=== PATIENT | female | born 1950 | race Caucasian/White ===

== ENCOUNTER 2016-03-18 12:59 | Emergency (ER) | payer OTHER ==
[~2016-03-18] VITALS: Ht 157.5 cm; Wt 59.2 kg
[~2016-03-18 12:59] MED LIST: ADVI200C9 PO; CYCL5TAB PO; GLUCTAB OR; LEVADOPA PO; PERC5TAB12 PO
[2016-03-18 13:04] VITALS: BP 114/67; PULSE 72; RESP 16; TEMP 98.7; O2SAT 100
[2016-03-18] MEDS ORDERED: METF1000 PO (13:27)
--- NOTE | 2016-03-18 14:01 | PD ---
HPI . Constipation Chief Complaint: GI Complaint Time Seen by Provider: 13:17 Travel History International Travel<30 days: No Contact w/Intl Traveler<30days: No Traveled to known affect area: No History of Present Illness HPI Patient presents complaining with constipation. This been going on for a couple weeks. She states her abdomen is very swollen. She has a poor appetite and sometimes feels nauseous. No vomiting. No fever. PFSH Past Medical History Asthma: Yes Anxiety: Yes Heart Rhythm Problems: No Cancer: No Cardiac Catheterization: No Cardiovascular Problems: No High Cholesterol: Yes Congestive Heart Failure: No Diabetes: Yes Patient Takes Glucophage: Yes Diverticulitis: Yes Endocrine: Yes Gastrointestinal Disorders: Yes GERD: Yes Genitourinary: No Hypertension: No Immune Disorder: No Musculoskeletal: Yes (RESTLESS LEG SYNDROME) Neurologic: Yes (RESTLESS LEG SYNDROME) Psychiatric: No Reproductive: No Respiratory: Yes Myocardial Infarction: No Tetanus Vaccination: < 5 Years ?: Not LMP: MAYNOR Tubal Ligation: Yes Past Surgical History Abdominal Surgery: Yes (choly, appy lap exploratory) Appendectomy: Yes Cholecystectomy: Yes Coronary Artery Bypass Graft: No Other Surgery: Yes Social History Alcohol Use: No Tobacco Use: Yes (05/10 PPD) Substance Use: No Allergies-Medications (Allergen,Severity, Reaction): Coded Allergies: Codeine (Verified Adverse Reaction, Severe, Nausea/Vomiting, 03/18/16) Reported Meds & Prescriptions Reported Meds & Active Scripts Active Reported Metformin (Metformin HCl) 1,000 Mg Tab 1,000 Mg PO BIDPC With meals [Levadopa] 1 Tab PO HS Review of Systems Except as stated in HPI: all other systems reviewed are Neg General / Constitutional: No: Fever, Chills Gastrointestinal: Positive: Nausea, Abdominal Pain, Constipation, Changes in Bowel Habits, Loss of Appetite, Other (bloating), No: Vomiting, Diarrhea Genitourinary: Positive: Frequency, No: Urgency, Dysuria Physical Exam Narrative GENERAL: Healthy-appearing 66-year-old woman in no acute distress SKIN: Warm and dry. HEAD: Atraumatic. Normocephalic. EYES: Pupils equal and round. ENT: No nasal bleeding or discharge. Mucous membranes pink and moist. NECK: Trachea midline. CARDIOVASCULAR: Regular rate and rhythm. Heart sounds are normal. RESPIRATORY: No accessory muscle use. Lungs are clear with good air movement throughout. GASTROINTESTINAL: Abdomen soft, non-tender. Abdomen is bloated and diffusely tender. Bowel sounds are diminished. MUSCULOSKELETAL: No obvious deformities. No edema. NEUROLOGICAL: Awake and alert. No obvious cranial nerve deficits. Motor grossly within normal limits. Normal speech. PSYCHIATRIC: Appropriate mood and affect; insight and judgment normal. Data Data Last Documented VS Vital Signs Date Time Temp Pulse Resp B/P Pulse Ox O2 Delivery O2 Flow Rate FiO2 03/18/16 14:58 97 Room Air 03/18/16 13:04 98.7 72 16 114/67 Orders Chest, Single Ap (03/18/16 13:18) Abdomen, Flat & Upright (03/18/16 13:18) Complete Blood Count With Diff (03/18/16 14:17) Comprehensive Metabolic Panel (03/18/16 14:17) Lipase (03/18/16 14:17) Urinalysis - C+S If Indicated (03/18/16 14:17) Ct Abd/Pel W Iv Contrast(Rout) (03/18/16 14:17) Iv Access Insert/Monitor (03/18/16 14:17) Ecg Monitoring (03/18/16 14:17) Oximetry (03/18/16 14:17) Sodium Chloride 0.9% Flush (Ns Flush) (03/18/16 14:30) Urine Culture (03/18/16 14:40) Iohexol 350 Inj (Omnipaque 350 Inj) (03/18/16 15:48) Labs Laboratory Tests Test 03/18/16 14:40 White Blood Count 6.6 TH/MM3 Red Blood Count 4.59 MIL/MM3 Hemoglobin 14.2 GM/DL Hematocrit 43.0 % Mean Corpuscular Volume 93.8 FL Mean Corpuscular Hemoglobin 31.0 PG Mean Corpuscular Hemoglobin 33.0 % Concent Red Cell Distribution Width 14.0 % Platelet Count 282 TH/MM3 Mean Platelet Volume 8.3 FL Neutrophils (%) (Auto) 56.8 % Lymphocytes (%) (Auto) 30.6 % Monocytes (%) (Auto) 8.8 % Eosinophils (%) (Auto) 3.3 % Basophils (%) (Auto) 0.5 % Neutrophils # (Auto) 3.8 TH/MM3 Lymphocytes # (Auto) 2.0 TH/MM3 Monocytes # (Auto) 0.6 TH/MM3 Eosinophils # (Auto) 0.2 TH/MM3 Basophils # (Auto) 0.0 TH/MM3 CBC Comment DIFF FINAL Differential Comment Urine Collection Type CLEAN CATCH Urine Color YELLOW Urine Turbidity CLEAR Urine pH 6.5 Urine Specific [place] 1.025 Urine Protein NEG mg/dL Urine Glucose (UA) NEG mg/dL Urine Ketones NEG mg/dL Urine Occult Blood NEG Urine Nitrite NEG Urine Bilirubin NEG Urine Leukocyte Esterase NEG Urine Squamous Epithelial 6-8 /hpf Cells Urine Amorphous Sediment FEW Urine Bacteria MOD /hpf Microscopic Urinalysis Comment CULTURE INDICATED Urine Collection Time 1440 Sodium Level 142 MEQ/L Potassium Level 3.7 MEQ/L Chloride Level 106 MEQ/L Carbon Dioxide Level 29.2 MEQ/L Anion Gap 7 MEQ/L Blood Urea Nitrogen 19 MG/DL Creatinine 0.81 MG/DL Estimat Glomerular Filtration 71 ML/MIN Rate Random Glucose 84 MG/DL Calcium Level 9.0 MG/DL Total Bilirubin 0.5 MG/DL Aspartate Amino Transf 13 U/L (AST/SGOT) Alanine Aminotransferase 23 U/L (ALT/SGPT) Alkaline Phosphatase 50 U/L Total Protein 7.2 GM/DL Albumin 3.7 GM/DL Lipase 142 U/L [facility] Medical Decision Making Medical Screen Exam Complete: Yes Emergency Medical Condition: Yes Differential Diagnosis Differential diagnosis of abdominal pain includes but is not limited to gastritis, pancreatitis, hepatitis, gastroenteritis, gallbladder disease, constipation, urinary retention, UTI, peptic ulcer disease, diverticulitis or appendicitis Narrative Course Patient presents for evaluation and treatment of apparent constipation. She states that she has not been having good bowel movements for the last several weeks. She is now very bloated. 2:18 PM Plain films really do not show a lot of stool. Therefore, I will proceed with a full abdominal pain workup. 3:26 PM CBC is normal. Chemistries are unremarkable with the exception of BUN/cr of 19/0.81. CT and UA are pending. 3:32 PM Voided urine shows bacteria but there is no leukocyte esterase or nitrite. There is no mention of white blood cells. Therefore, I do not think that she has a UTI. Diagnosis Primary Impression: Abdominal pain Qualified Code: R10.84 - Generalized abdominal pain Disposition: 01 DISCHARGE HOME Condition: Stable Barby Murphy MD Mar 18, 2016 14:01
--- NOTE | 2016-03-18 14:05 | RADHPO ---
EXAM DATE/TIME: 03/18/2016 13:45 [facility] COMPARISON: CHEST SINGLE AP, July 18, 2013, 15:56. INDICATIONS : Shortness of breath. MEDICAL HISTORY : Asthma. Smoker. SURGICAL HISTORY : None. ENCOUNTER: Initial ACUITY: 1 week PAIN SCORE: 0/10 LOCATION: Bilateral chest FINDINGS: A single view of the chest demonstrates the lungs to be symmetrically aerated without evidence of mas s, infiltrate or effusion. The cardiomediastinal contours are unremarkable. Osseous structures are intact. CONCLUSION: No acute disease. Viecnte Franks MD on March 18, 2016 at 14:03 Board Certified Radiologist. This report was verified electronically.
--- NOTE | 2016-03-18 14:09 | RADHPO ---
EXAM DATE/TIME: 03/18/2016 13:52 [facility] COMPARISON: CHEST SINGLE AP, March 18, 2016, 13:45. INDICATIONS : Abdominal pain, constipation and distention. MEDICAL HISTORY : None. SURGICAL HISTORY : Cholecystectomy. Appendectomy. Tubal ligation. ENCOUNTER: Initial ACUITY: 1 month PAIN SCORE: 6/10 LOCATION: Abdomen. FINDINGS: Supine and upright views of the abdomen were performed. The abdominal bowel gas pattern is normal. No air fluid levels are seen. There is a relative paucity of bowel gas identified within the pelvis. No abnormal masses, calcifications, or organomegaly is seen. The visualized lower lungs are clear. No evidence of free intraperitoneal gas. The osseous structures are unremarkable. CONCLUSION: No evidence of bowel obstruction or free air. The paucity of bowel gas identified within the pelvis m ay reflect decompression versus fluid filled bowel.. Pastora Garcia MD on March 18, 2016 at 14:07 Board Certified Radiologist. This report was verified electronically.
[2016-03-18] MEDS ORDERED: SODIUM CHLORIDE 0.9% FLUSH 5 ML FLUSH IVF PRN (14:30)
[2016-03-18 14:46] LABS: BLOOD, URINE NEG (NEG); GLUCOSE,URINE NEG (NEG); KETONE, URINE NEG (NEG); NITRITE,URINE NEG (NEG); PH, URINE 6.5 (5.0-8.5)
[2016-03-18 14:56] LABS: CHLORIDE 106 MEQ/L (98-107); POTASSIUM 3.7 MEQ/L (3.5-5.1); SODIUM (NA) 142 MEQ/L (136-145)
[2016-03-18 14:58] VITALS: O2SAT 97
[2016-03-18 15:00] LABS: ANION GAP 7 MEQ/L (5-15); BICARBONATE 29.2 MEQ/L (21.0-32.0); BLOOD UREA NITROGEN 19 MG/DL (7-18)
[2016-03-18 15:03] LABS: ALT (GPT) 23 U/L (10-53); AST (GOT) 13 U/L (15-37); GLOMERULAR FILTRATION RATE 71 ML/MIN (>89)
[2016-03-18 15:05] LABS: TOTAL BILIRUBIN ADULT 0.5 MG/DL (0.2-1.0)
[2016-03-18 15:06] LABS: ALKALINE PHOSPHATASE 50 U/L (45-117)
[2016-03-18 15:09] LABS: AUTOMATED NEUTROPHIL # 3.8 TH/MM3 (1.8-7.7); BASOPHIL % 0.5 % (0.0-2.0); EOSINOPHIL # 0.2 TH/MM3 (0-0.4); EOSINOPHIL % 3.3 % (0.0-4.0); HEMO FLAGS DIFF FINAL; LYMPH % 30.6 % (9.0-44.0); MEAN CELL VOLUME 93.8 FL (80.0-100.0); MONO % 8.8 % (0.0-8.0); NEUT % 56.8 % (16.0-70.0); PLATELET COUNT 282 TH/MM3 (150-450); RED BLOOD COUNT 4.59 MIL/MM3 (4.00-5.30); WHITE BLOOD COUNT 6.6 TH/MM3 (4.0-11.0)
[2016-03-18 15:29] LABS: METHOD OF COLLECTION CLEAN CATCH; URINE COLOR YELLOW (YELLW/STRAW)
[2016-03-18 15:30] LABS: BACTERIA, URINE MOD /hpf; COMMENT (UR) CULTURE INDICATED; COMMENT2 (UR) MUCOUS PRESENT; CULTURE IF INDICATED CULTURE INDICATED
[2016-03-18] MEDS ORDERED: IOHEXOL 350 MG/ML 10 ML VIAL (for RAD DIAG) IV ONE (15:48)
--- NOTE | 2016-03-18 16:24 | RADHPO ---
EXAM DATE/TIME: 03/18/2016 15:29 [facility] COMPARISON: CT ABDOMEN & PELVIS W CONTRAST, December 21, 2011, 5:24. INDICATIONS: Constipation. Distention. Weight gain. Pain. IV CONTRAST: 100 cc Omnipaque 350 (iohexol) IV ORAL CONTRAST: No oral contrast ingested. RADIATION DOSE: 9.60 CTDIvol (mGy) MEDICAL HISTORY: Diverticulitis. Gastroesophageal reflux disease. Diabetes. SURGICAL HISTORY: Cholecystectomy. Appendectomy. ENCOUNTER: Initial ACUITY: 1 week PAIN SCALE: 9/10 LOCATION: Abdomen/pelvis TECHNIQUE: Volumetric scanning of the abdomen and pelvis was performed. Using automated exposure control and ad justment of the mA and/or kV according to patient size, radiation dose was kept as low as reasonably achievable to obtain optimal diagnostic quality images. FINDINGS: There is a massive complex cystic mass measuring 24.5 x 24.2 x 13.7 cm. This likely represents ovari an neoplasm with malignancy more likely than benign ovarian neoplasm. Gynecologic evaluation is recomme nded. The liver is unremarkable without focal mass or biliary ductal dilatation. The patient is status pos t cholecystectomy. The spleen is normal. The pancreas is also normal. The adrenal glands are normal bilaterally. The kidneys enhance briskly and demonstrate no evidence of focal mass or hydronephrosis. The abdomin al aorta is calcified but it is not aneurysmally dilated. Uncomplicated colonic diverticulosis is noted. The inferior vena cava is unremarkable. There is no paraaortic, retroperitoneal or mesenteric lymphadenopathy. No asc ites is noted. There is a hiatal hernia. The urinary bladder and uterus are unremarkable. CONCLUSION: 1. Massive complex cystic mass filling the pelvis and the majority of the mid and lower abdomen shanae uring 24.5 x 24.2 x 13.7 cm. This is highly suspicious for ovarian malignancy until proven otherwise . Gynecologic evaluation is recommended. 2. Hiatal hernia. Vicente Franks MD on March 18, 2016 at 15:56 Board Certified Radiologist. This report was verified electronically.
--- NOTE | 2016-03-18 17:03 | PD ---
Physical Exam Time Seen by Provider: 16:30 Narrative This patient was signed out to me by Dr. Murphy. Please see her note for further details. In short, patient presents with a several month history of constipation in urinary frequency. States over the past month that is especially worsened and she has gained 6 pounds. Denies family history of ovarian or breast cancer but reports history of colon cancer. Data Data Last Documented VS Vital Signs Date Time Temp Pulse Resp B/P Pulse Ox O2 Delivery O2 Flow Rate FiO2 03/18/16 14:58 97 Room Air 03/18/16 13:04 98.7 72 16 114/67 Orders Chest, Single Ap (03/18/16 13:18) Abdomen, Flat & Upright (03/18/16 13:18) Complete Blood Count With Diff (03/18/16 14:17) Comprehensive Metabolic Panel (03/18/16 14:17) Lipase (03/18/16 14:17) Urinalysis - C+S If Indicated (03/18/16 14:17) Ct Abd/Pel W Iv Contrast(Rout) (03/18/16 14:17) Iv Access Insert/Monitor (03/18/16 14:17) Ecg Monitoring (03/18/16 14:17) Oximetry (03/18/16 14:17) Sodium Chloride 0.9% Flush (Ns Flush) (03/18/16 14:30) Urine Culture (03/18/16 14:40) Iohexol 350 Inj (Omnipaque 350 Inj) (03/18/16 15:48) Mandatory Outpatient Referral (03/18/16 16:54) Labs Laboratory Tests Test 03/18/16 14:40 White Blood Count 6.6 TH/MM3 Red Blood Count 4.59 MIL/MM3 Hemoglobin 14.2 GM/DL Hematocrit 43.0 % Mean Corpuscular Volume 93.8 FL Mean Corpuscular Hemoglobin 31.0 PG Mean Corpuscular Hemoglobin 33.0 % Concent Red Cell Distribution Width 14.0 % Platelet Count 282 TH/MM3 Mean Platelet Volume 8.3 FL Neutrophils (%) (Auto) 56.8 % Lymphocytes (%) (Auto) 30.6 % Monocytes (%) (Auto) 8.8 % Eosinophils (%) (Auto) 3.3 % Basophils (%) (Auto) 0.5 % Neutrophils # (Auto) 3.8 TH/MM3 Lymphocytes # (Auto) 2.0 TH/MM3 Monocytes # (Auto) 0.6 TH/MM3 Eosinophils # (Auto) 0.2 TH/MM3 Basophils # (Auto) 0.0 TH/MM3 CBC Comment DIFF FINAL Differential Comment Urine Collection Type CLEAN CATCH Urine Color YELLOW Urine Turbidity CLEAR Urine pH 6.5 Urine Specific [place] 1.025 Urine Protein NEG mg/dL Urine Glucose (UA) NEG mg/dL Urine Ketones NEG mg/dL Urine Occult Blood NEG Urine Nitrite NEG Urine Bilirubin NEG Urine Leukocyte Esterase NEG Urine Squamous Epithelial 6-8 /hpf Cells Urine Amorphous Sediment FEW Urine Bacteria MOD /hpf Microscopic Urinalysis Comment CULTURE INDICATED Urine Collection Time 1440 Sodium Level 142 MEQ/L Potassium Level 3.7 MEQ/L Chloride Level 106 MEQ/L Carbon Dioxide Level 29.2 MEQ/L Anion Gap 7 MEQ/L Blood Urea Nitrogen 19 MG/DL Creatinine 0.81 MG/DL Estimat Glomerular Filtration 71 ML/MIN Rate Random Glucose 84 MG/DL Calcium Level 9.0 MG/DL Total Bilirubin 0.5 MG/DL Aspartate Amino Transf 13 U/L (AST/SGOT) Alanine Aminotransferase 23 U/L (ALT/SGPT) Alkaline Phosphatase 50 U/L Total Protein 7.2 GM/DL Albumin 3.7 GM/DL Lipase 142 U/L [facility] Medical Record Reviewed: Yes Supervised Visit with RAY: Yes Narrative Course 66-year-old female presents to the emergency room for evaluation of constipation and urinary frequency for the past several months. Patient was signed out to me by Dr. Murphy pending CT scan. CT reveals a complex cystic mass measuring 24 x 13 cm. I spoke to the OB hospitalist Dr. Sola Kwon who recommends patient follow up as an outpatient with [facility]. Patient does not currently have an [facility] as she does not have insurance. A mandatory outpatient referral was placed. Patient was counseled extensively by disability case manager. Diagnosis Primary Impression: Ovarian cystic mass Qualified Code: N83.209 - Cyst of ovary, unspecified laterality Additional Impression: Abdominal pain Qualified Code: R10.84 - Generalized abdominal pain Referrals: Front Desk Admin Patient Instructions: General Instructions, Ovarian Cyst (ED) Additional Instruction: Follow-up with journeyman sheet metal worker. You will receive a call for an appointment. Return to the emergency room for any acute worsening of symptoms. Disposition: 01 DISCHARGE HOME Condition: Stable Kimberlee Burnette Mar 18, 2016 17:03
[2016-03-18 17:11] VITALS: BP 132/87
[2016-05-01] MEDS ORDERED: PERC5TAB12 PO (15:56)
[2016-05-01] MEDS ORDERED: CARB25TA12 PO (15:57)
[2016-05-01] MEDS ORDERED: ALPR.25 PO (15:57)
== END 2016-03-18 17:21 | disposition home or self-care (01) ==
LOC: PHEFT 12:59
DX: K59.00 Constipation, unspecified (principal); R35.0 Frequency of micturition; N83.299 Other ovarian cyst, unspecified side; F41.9 Anxiety disorder, unspecified; E78.00 Pure hypercholesterolemia, unspecified; F17.210 Nicotine dependence, cigarettes, uncomplicated
CPT/HCPCS: 71010; 74020; 74177; 80053; 81001; 83690; 85025; 87086; 99284; Q9967

== ENCOUNTER 2016-05-02 11:25 | Inpatient (IN) | payer OTHER ==
[~2016-05-02] VITALS: Ht 157.5 cm; Wt 58.0 kg
[~2016-05-02 11:25] MED LIST changes: -ADVI200C9 PO; +ALPR.25 PO; +CARB25TA12 PO; -CYCL5TAB PO; -GLUCTAB OR; -LEVADOPA PO
--- NOTE | 2016-05-05 05:19 | MH ---
cc: WILLARD REA DATE OF ADMISSION: 05/05/2016 DATE OF 1950 HISTORY OF PRESENT ILLNESS The patient is a 66-year-old 3, para 1-0-2-1, who presents with abdominal pain and bloating over the last 5 years approximately. The patient states that her symptoms have been worsening probably over the last 6-8 months. The patient states that initially she had lost weight, approximately 20 pounds, but she has gained weight and noticed increased abdominal swelling and pain. PAST MEDICAL HISTORY 1. Migraine headaches. 2. Hypercholesterolemia. 3. Asthma. 4. Diabetes. 5. Constipation recently. PAST SURGICAL HISTORY 1. Appendectomy. 2. Cholecystectomy. 3. Tubal ligation. OB HISTORY She had three pregnancies, one live, one miscarriage and one termination. VAT WASHER HISTORY No history of STDs or abnormal Pap smears. SOCIAL HISTORY The patient is a clear. She smokes approximately a half-pack per day for many years, she states. 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 Imitrex. 2. Carbidopa-levodopa. 3. Metformin. ALLERGIES CODEINE. FAMILY HISTORY Lung and colon cancer. PHYSICAL EXAMINATION AFVSS CV: RRR PULM: CTA ABDOMEN: SOFT, +BS, LARGE MASS EXTENDING ABOVE UMBILICUS, EXT: NT, NO EDEMA LABORATORY DATA The patient has a negative CA-125 level. On CAT scan the patient was noted to have an adnexal mass that measured 24 x 24 x 13 cm. It appeared complex and cystic. There was no adenopathy, no ascites noted. IMPRESSION A 66-year-old postmenopausal woman with a pelvic mass. PLAN Exploratory laparotomy with BSO, likely hysterectomy, frozen section. We will have Dr. Stewart on standby if frozen does return with a cancer for staging procedures. The risks, benefits and alternatives have been reviewed with the patient and she does desire to proceed. She has been bowel prepped. Willard Rea MD TEG/SSB /11:05 PM /5:04 AM [facility]
[2016-05-05] MEDS: LACTATED RINGER'S 1000 ML IV SCH (07:50)
[2016-05-05] MEDS ORDERED: ceFAZolin 2 GM PREMIX 50 ML ONE (07:59)
[2016-05-05 08:03] VITALS: BP 102/58; PULSE 60; RESP 20; TEMP 98.3; O2SAT 100
[2016-05-05] MEDS ORDERED: LACTATED RINGER'S 1000 ML INJ 1,000 ML ONE (08:13)
[2016-05-05 08:22] LABS: AUTOMATED NEUTROPHIL # 3.9 TH/MM3 (1.8-7.7); BASOPHIL # 0.1 TH/MM3 (0-0.2); EOSINOPHIL # 0.1 TH/MM3 (0-0.4); EOSINOPHIL % 1.8 % (0.0-4.0); HEMATOCRIT 43.5 % (35.0-46.0); HEMO FLAGS DIFF FINAL; LYMPH % 23.9 % (9.0-44.0); LYMPHOCYTE # 1.4 TH/MM3 (1.0-4.8); MEAN CELL VOLUME 95.4 FL (80.0-100.0); MEAN CORPUSCULAR HEMOGLOBIN 31.6 PG (27.0-34.0); MEAN CORPUSCULAR HGB CONC 33.1 % (32.0-36.0); MONO % 8.6 % (0.0-8.0); NEUT % 64.7 % (16.0-70.0); PLATELET COUNT 269 TH/MM3 (150-450); RED BLOOD COUNT 4.56 MIL/MM3 (4.00-5.30); RED CELL DISTRIBUTION WIDTH 13.7 % (11.6-17.2)
[2016-05-05] MEDS ORDERED: ceFAZolin 2 GM PREMIX 50 ML IV SCH (08:30)
[2016-05-05] MEDS ORDERED: INSULIN HUMAN REGULAR 1,000 UNITS/10 ML VIAL SQ PRN (08:30)
[2016-05-05] MEDS: SODIUM CHLORID 0.9% 500 ML IV SCH (08:30)
[2016-05-05] MEDS ORDERED: METOPROLOL TARTRATE 25 MG TAB PO PRN (08:30)
[2016-05-05 08:47] LABS: ALKALINE PHOSPHATASE 49 U/L (45-117); TOTAL BILIRUBIN ADULT 1.9 MG/DL (0.2-1.0)
[2016-05-05 08:49] LABS: ALT (GPT) 12 U/L (10-53); ANION GAP 11 MEQ/L (5-15); AST (GOT) 28 U/L (15-37); BLOOD UREA NITROGEN 14 MG/DL (7-18); CHLORIDE 106 MEQ/L (98-107); GLOMERULAR FILTRATION RATE 71 ML/MIN (>89); POTASSIUM 4.1 MEQ/L (3.5-5.1); SODIUM (NA) 140 MEQ/L (136-145)
[2016-05-05] MEDS ORDERED: DEXAMETHASONE SOD PHOS 4 MG/ML VIAL ONE (09:16)
[2016-05-05] MEDS ORDERED: METOCLOPRAMIDE HCL 10 MG/2 ML VIAL ONE (09:17)
[2016-05-05] MEDS ORDERED: FAMOTIDINE 20 MG/2 ML VIAL ONE (09:17)
[2016-05-05] MEDS ORDERED: APREPITANT 40 MG CAP ONE (09:18)
[2016-05-05] MEDS ORDERED: ONDANSETRON HCL 4 MG/2 ML VIAL IV PUSH ONE (10:32)
[2016-05-05] MEDS ORDERED: NEOSTIGMINE 3 MG/3 ML SYR IV ONE (10:32)
[2016-05-05] MEDS ORDERED: ePHEDrine/NS 25 MG/5 ML SYR IV ONE (10:32)
[2016-05-05] MEDS ORDERED: NORMOSOL R INJ 1,000 ML IV ONE (10:32)
[2016-05-05] MEDS ORDERED: PROPOFOL 200 MG/20 ML AMP IV ONE (10:32)
[2016-05-05] MEDS ORDERED: PHENYLEPH/NS 1000 MCG/10 ML SYR IV ONE (10:32)
[2016-05-05] MEDS ORDERED: NALOXONE HCL 0.4 MG/ML AMP IV PRN (11:45)
[2016-05-05] MEDS ORDERED: diphenhydrAMINE HCL 50 MG/ML VIAL IV PRN (11:45)
[2016-05-05] MEDS ORDERED: ONDANSETRON HCL 4 MG/2 ML VIAL IV PUSH PRN (11:45)
[2016-05-05] MEDS ORDERED: ONDANSETRON ODT 4 MG TAB SL PRN (11:45)
[2016-05-05] MEDS ORDERED: METOCLOPRAMIDE HCL 10 MG/2 ML VIAL IV PUSH PRN (11:45)
[2016-05-05] MEDS ORDERED: ZOLPIDEM TARTRATE 5 MG TAB PO PRN (11:45)
[2016-05-05] MEDS ORDERED: SODIUM CHLORIDE 0.9% FLUSH 5 ML FLUSH IVF PRN (11:45)
[2016-05-05] MEDS ORDERED: diphenhydrAMINE HCL 25 MG CAP PO PRN (11:45)
[2016-05-05] MEDS ORDERED: *morphine SULFATE 8 MG/ML PERIprocedure ONLY ONE ×2 (11:49→12:06)
[2016-05-05] MEDS ORDERED: fentaNYL CITRATE 250 MCG/5 ML AMP ONE (11:57)
[2016-05-05] MEDS: ACETAMINOPHEN 1000 MG/100 ML VIAL IV SCH ×2 (12:00→17:57)
[2016-05-05] MEDS: KETOROLAC TROMETHAMINE 30 MG/ML (IVP) VIAL IV PUSH SCH ×2 (12:00→17:57)
--- NOTE | 2016-05-05 12:15 | MP ---
cc: REA,WILLARD Corrected Copy: 05/13/16 DATE OF SURGERY: 05/05/2016 DATE OF : 1950 PREOPERATIVE DIAGNOSIS Pelvic mass. POSTOPERATIVE DIAGNOSIS Pelvic mass. 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 SURGEON Willard Rea ANESTHESIA General. ESTIMATED BLOOD LOSS 200 cc. DRAINS Silverman to gravity. PROCEDURE Exploratory laparotomy, total abdominal hysterectomy, bilateral salpingo-oophorectomy. SPECIMENS Uterus, cervix, tubes and ovaries with the left tube and ovary being sent for frozen and reported as previously read. COMPLICATIONS None. COUNTS Correct x2. DISPOSITION Stable in the PACU. INDICATION The patient is a 66-year-old female with a pelvic mass who presented with abdominal pain and constipation. DETAILS OF PROCEDURE After informed consent is obtained she is taken to the operating room. She is prepped and draped in normal sterile fashion for surgery. A midline vertical incision is made and carried down to the underlying layer of fascia using the Bovie. The fascia was incised in the midline and the incision extended superiorly and inferiorly. Next, the site of the mass is able to be palpated once the peritoneum is entered and it is noted to extend well above the umbilicus so the skin incision is extended around the umbilicus and up towards the xiphoid approximately 3-4 cm above the umbilicus. Peritoneal washings are then obtained and the mass is palpated. It is noted to be coming from the patient's left adnexal region. The infundibulopelvic ligament is noted and doubly clamped, cut and suture ligated. The mass is then passed off to be sent to pathology. We did weigh it before sending it and it was noted to be over 7000 grams. Once this was done and the mass is removed the patient's pelvic anatomy appears otherwise unremarkable. There is no evidence of ascites or omental caking. The patient's right tube has evidence of a prior tubal ligation and her right ovary is grossly within normal limits. The round ligament is identified and clamped and then divided. The vesicouterine peritoneum is identified, tented up and divided as well. The bladder flap is created. It should also be noted that we did insert an O'Dave-O'Mccain retractor and the bowel was packed away with moist laparotomy sponges. The procedure with the round ligament was then carried out on the opposite side. Next, the infundibulopelvic ligament on the patient's right side is identified. The ureter is noted to be well out of the operative field. The ligament is then doubly clamped, cut and suture ligated with good hemostatic result. Next, the uterine artery on the patient's right side is skeletonized and then clamped, cut and suture ligated. The same procedure is carried out on the patient's left side. Again, care is taken to ensure that the bladder is down out of the operative field. Next, successive bites are taken along the cardinal ligament, clamping, cutting and suture ligating on both sides until the level of the external cervical os is reached. The Zeppelin clamps are then placed at this junction and the Brian scissors are used to amputate the uterus and cervix. The specimen is passed off the field. The cuff is closed with [id number] sutures of 0 Vicryl. Good hemostasis is noted. The pelvis is copiously irrigated. At this time the frozen section returned stating that it was a benign mucinous serous cystadenoma with no features to support a borderline tumor. At this point hearing that it was benign from pathology the decision was made to close. The retractors were removed from the patient's abdomen along with the laparotomy sponges. The fascia is re-approximated using looped PDS suture. The subcutaneous fat is irrigated and made hemostatic and finally the skin is closed using adriane. It should also be noted that all counts were noted to be correct. The patient was then transferred to the recovery room in stable condition. The urine was clear and yellow at the end of the case. Willard Rea MD TEG/BT /11:43 AM /10:38 AM
[2016-05-05] MEDS: MORPHINE SULFATE 30 MG/30 ML PCA IV SCH (12:29)
[2016-05-05] MEDS: LACTATED RINGER'S 1000 ML INJ 1,000 ML IV SCH ×2 (12:30→19:31)
--- NOTE | 2016-05-05 13:38 | EKG ---
Date Performed: 05/05/2016 Time Performed: 09:27:07 PTAGE: 66 years EKG: Sinus rhythm NORMAL ECG Compared to prior tracing no significant change PREVIOUS TRACING : 07/18/2013 19.24 DOCTOR: Pritesh [place] Interpretating Date/Time 05/05/2016 13:36:59
[2016-05-05] MEDS: PCA - TOTAL MG MORPHINE DELIVERED PER SHIFT SCH ×2 (14:00→22:00)
[2016-05-05 15:00] VITALS: BP 111/50; PULSE 71; RESP 16; TEMP 96.9; O2SAT 100
[2016-05-05 20:00] VITALS: BP 95/49; PULSE 73; RESP 18; TEMP 96.1; O2SAT 98
[2016-05-05] MEDS: SODIUM CHLORIDE 0.9% FLUSH 5 ML FLUSH IVF SCH (21:00)
[2016-05-06] VITALS: BP 101/51; PULSE 60; RESP 17; TEMP 97; O2SAT 99
[2016-05-06] MEDS: SODIUM CHLORID 0.9% 500 ML IV SCH (00:01)
[2016-05-06] MEDS: KETOROLAC TROMETHAMINE 30 MG/ML (IVP) VIAL IV PUSH SCH ×2 (00:55→06:40)
[2016-05-06] MEDS: ACETAMINOPHEN 1000 MG/100 ML VIAL IV SCH ×2 (00:56→06:39)
[2016-05-06] MEDS: CARBIDOPA/LEVODOPA 25 MG/250 MG TAB PO SCH ×2 (03:26→20:44)
[2016-05-06] MEDS: LACTATED RINGER'S 1000 ML INJ 1,000 ML IV SCH ×3 (03:31→19:31)
[2016-05-06 04:00] VITALS: BP 91/50; PULSE 61; RESP 18; TEMP 97.7; O2SAT 91
[2016-05-06] MEDS: PCA - TOTAL MG MORPHINE DELIVERED PER SHIFT SCH ×3 (06:00→20:47)
[2016-05-06 07:18] LABS: AUTOMATED NEUTROPHIL # 8.7 TH/MM3 (1.8-7.7); BASOPHIL % 0.1 % (0.0-2.0); EOSINOPHIL % 0.2 % (0.0-4.0); HEMATOCRIT 34.3 % (35.0-46.0); HEMO FLAGS DIFF FINAL; LYMPH % 10.9 % (9.0-44.0); LYMPHOCYTE # 1.2 TH/MM3 (1.0-4.8); MEAN CELL VOLUME 94.9 FL (80.0-100.0); MEAN CORPUSCULAR HEMOGLOBIN 31.7 PG (27.0-34.0); MEAN CORPUSCULAR HGB CONC 33.4 % (32.0-36.0); NEUT % 78.8 % (16.0-70.0); PLATELET COUNT 223 TH/MM3 (150-450); RED BLOOD COUNT 3.61 MIL/MM3 (4.00-5.30); RED CELL DISTRIBUTION WIDTH 13.5 % (11.6-17.2)
[2016-05-06 07:41] LABS: POTASSIUM 4.1 MEQ/L (3.5-5.1)
[2016-05-06 08:00] VITALS: BP 92/45; PULSE 62; RESP 16; TEMP 97.9; O2SAT 100
[2016-05-06] MEDS: LACTATED RINGER'S 1000 ML IV SCH (08:30)
[2016-05-06] MEDS: SODIUM CHLORIDE 0.9% FLUSH 5 ML FLUSH IVF SCH ×2 (09:00→20:46)
[2016-05-06] MEDS: MORPHINE SULFATE 30 MG/30 ML PCA IV SCH (10:08)
--- NOTE | 2016-05-06 13:07 | HHI.PR ---
Subjective Remarks Doing well, pain is well controlled with non linear editor, mild nausea, awaiting void, denies vomiting, SOB, CP. jaime clears and some solids. Objective Vital Signs Vital Signs Date Time Temp Pulse Resp B/P Pulse Ox O2 Delivery O2 Flow Rate FiO2 05/06/16 10:08 16 05/06/16 08:00 97.9 62 16 92/45 100 05/06/16 07:22 16 05/06/16 07:22 16 05/06/16 06:00 16 05/06/16 04:00 97.7 61 18 91/50 91 05/06/16 00:00 97.0 60 17 101/51 99 05/05/16 22:00 16 05/05/16 20:00 96.1 73 18 95/49 98 05/05/16 15:00 96.9 71 16 111/50 100 05/05/16 14:30 97.6 74 12 100/48 96 Nasal Cannula 2 05/05/16 14:15 52 18 119/57 97 05/05/16 14:00 81 12 119/52 97 05/05/16 14:00 14 05/05/16 13:30 81 14 108/55 98 05/05/16 13:15 77 14 100/53 99 I/O 05/05/16 05/05/16 05/05/16 05/06/16 05/06/16 05/06/16 07:00 15:00 23:00 07:00 15:00 23:00 Intake Total 3120 ml 480 ml Output Total 1050 ml 450 ml 700 ml Balance 2070 ml -450 ml -220 ml Intake Oral 120 ml 480 ml IV Total 500 ml Other 2500 ml Output Urine Total 700 ml 450 ml 700 ml Estimated Blood Loss 200 ml Other 150 ml Result Diagram: 05/06/1662305/06/16 0624 Objective Remarks CV- regular rate and rhythm. PULM- CTA b/l Abdomen is soft and non-distended, +BS Incision is clean,dry, intact with adriane. Ext no CCE. A/P Assessment and Plan Post Op Day 1 ex lap/jose manuel/bso pain controlled, trial percocet await void, if no void will bladder scan then replace marin start reglan ATC, to encourage GI motility Willard Crockett MD May 06, 2016 13:07
[2016-05-06 13:28] VITALS: BP 94/54; PULSE 54; RESP 16; TEMP 98; O2SAT 99
[2016-05-06] MEDS: IBUPROFEN 600 MG TAB PO PRN (14:25)
[2016-05-06] MEDS: oxyCODONE/ACETAMINOPHEN 5 MG/325 MG TAB PO PRN (14:25)
[2016-05-06] MEDS: DOCUSATE SODIUM 100 MG CAP PO PRN (14:25)
[2016-05-06] MEDS: METOCLOPRAMIDE HCL 10 MG/2 ML VIAL IV PUSH SCH ×2 (14:26→20:44)
[2016-05-06 16:00] VITALS: BP 100/53; PULSE 52; RESP 16; TEMP 96.9; O2SAT 100
[2016-05-06 20:00] VITALS: BP 107/52; PULSE 55; RESP 16; TEMP 97.3; O2SAT 98
[2016-05-06] MEDS: oxyCODONE/ACETAMINOPHEN 10 MG/325 MG TAB PO PRN (20:44)
[2016-05-07] VITALS: BP 93/51; PULSE 65; RESP 16; TEMP 96.5; O2SAT 96
[2016-05-07] MEDS: METOCLOPRAMIDE HCL 10 MG/2 ML VIAL IV PUSH SCH ×4 (02:00→19:24)
[2016-05-07] MEDS: LACTATED RINGER'S 1000 ML INJ 1,000 ML IV SCH ×3 (02:36→18:43)
[2016-05-07] MEDS: PCA - TOTAL MG MORPHINE DELIVERED PER SHIFT SCH ×3 (02:37→19:28)
[2016-05-07 04:00] VITALS: BP 115/56; PULSE 61; RESP 16; TEMP 97.2; O2SAT 100
[2016-05-07] MEDS: LORazepam 0.5 MG TAB PO PRN ×2 (04:15→23:30)
[2016-05-07] MEDS: oxyCODONE/ACETAMINOPHEN 10 MG/325 MG TAB PO PRN ×4 (04:15→23:30)
[2016-05-07] MEDS: LACTATED RINGER'S 1000 ML IV SCH (07:59)
[2016-05-07 08:00] VITALS: BP 104/52; PULSE 54; RESP 16; TEMP 97.5; O2SAT 99
[2016-05-07] MEDS: SODIUM CHLORIDE 0.9% FLUSH 5 ML FLUSH IVF SCH ×2 (08:20→19:25)
--- NOTE | 2016-05-07 08:57 | HHI.PR ---
Subjective Remarks Doing well, pain with fair control, eating well. +void/ await flatus Objective Vital Signs Vital Signs Date Time Temp Pulse Resp B/P Pulse Ox O2 Delivery O2 Flow Rate FiO2 05/07/16 08:00 97.5 54 16 104/52 99 05/07/16 05:19 16 05/07/16 04:00 97.2 61 16 115/56 100 05/07/16 00:00 96.5 65 16 93/51 96 05/06/16 20:00 97.3 55 16 107/52 98 05/06/16 16:00 96.9 52 16 100/53 100 05/06/16 14:00 16 05/06/16 13:28 98.0 54 16 94/54 99 05/06/16 10:08 16 I/O 05/06/16 05/06/16 05/06/16 05/07/16 05/07/16 05/07/16 07:00 15:00 23:00 07:00 15:00 23:00 Intake Total 480 ml 425 ml 1304 ml 240 ml Output Total 700 ml 700 ml 500 ml Balance -220 ml 425 ml 604 ml -260 ml Intake Oral 480 ml 425 ml 480 ml 240 ml IV Total 824 ml Output Urine Total 700 ml 700 ml 500 ml Result Diagram: 05/06/1662305/06/1624 Objective Remarks CV- regular rate and rhythm. PULM- CTA b/l Abdomen is soft and non-distended, +BS Incision is clean,dry, intact with adriane. Ext no CCE. A/P Assessment and Plan Post Op Day 2 ex lap/jose manuel/bso pain controlled, trial 1-2 percocet, 1 motrin start reglan ATC, to encourage GI motility Willard Crockett MD May 07, 2016 08:57
[2016-05-07] MEDS ORDERED: INFLUENZA VIRUS VACCINE (QUADRIVALENT) 0.5 ML SYR IM ONE (09:00)
[2016-05-07] MEDS: IBUPROFEN 600 MG TAB PO PRN ×2 (11:38→17:59)
[2016-05-07 12:45] VITALS: BP 115/63; PULSE 57; RESP 16; TEMP 97.7; O2SAT 97
[2016-05-07] MEDS: oxyCODONE/ACETAMINOPHEN 5 MG/325 MG TAB PO PRN (15:06)
[2016-05-07 16:00] VITALS: BP 118/66; PULSE 61; RESP 16; TEMP 98.2; O2SAT 97
[2016-05-07] MEDS: CARBIDOPA/LEVODOPA 25 MG/250 MG TAB PO SCH (19:17)
[2016-05-07 20:00] VITALS: BP 113/59; PULSE 56; RESP 17; TEMP 96.8; O2SAT 98
[2016-05-08] VITALS: BP 129/57; PULSE 57; RESP 18; TEMP 96.9; O2SAT 99
[2016-05-08] MEDS: METOCLOPRAMIDE HCL 10 MG/2 ML VIAL IV PUSH SCH ×2 (02:00→08:00)
[2016-05-08] MEDS: LACTATED RINGER'S 1000 ML IV SCH (02:25)
[2016-05-08] MEDS: LACTATED RINGER'S 1000 ML INJ 1,000 ML IV SCH ×2 (02:26→11:31)
[2016-05-08 04:00] VITALS: BP 116/64; PULSE 52; RESP 16; TEMP 96.9; O2SAT 98
[2016-05-08] MEDS: IBUPROFEN 600 MG TAB PO PRN ×2 (07:17→13:24)
[2016-05-08 08:24] VITALS: BP 123/73; PULSE 65; RESP 16; TEMP 97; O2SAT 99
[2016-05-08] MEDS: SODIUM CHLORIDE 0.9% FLUSH 5 ML FLUSH IVF SCH (09:00)
--- NOTE | 2016-05-08 12:39 | HHI.DCPOC ---
Discharge Care Plan Diagnosis: (1) Ovarian cystic mass (2) Abdominal pain Your Health Problems Are: Abdominal pain Report Symptoms to Your Doctor -Temperate above 100.5 degrees -Redness, of incision or excessive or foul smelling drainage -Unusual pain or calf pain -Increased vaginal bleeding -Painful or difficulty urinating -Feelings of extreme sadness or anxiety after 2 weeks Goals to Promote Your Health * To prevent worsening of your condition and complications * To maintain your health at the optimal level Directions to Meet Your Goals Take your medications as prescribed Follow your dietary instruction Follow activity as directed Ensure plenty of rest for recovery Drink fluids for hydration Keep your appointments as scheduled Take your immunizations and boosters as scheduled If your symptoms worsen call your PCP, if no PCP go to Urgent Care Center or Emergency Room Smoking is Dangerous to Your Health. Avoid second hand smoke Call the 24-hour crisis hotline for domestic abuse at Willard De La O MD May 08, 2016 12:39
--- NOTE | 2016-05-08 12:42 | HHI.DS ---
Admission Date May 05, 2016 at 07:19 Discharge Date: May 08, 2016 Admitting Diagnosis pelvic mass, abdominal pain Diagnosis: Hospital Course pt was admitted on 05/05 and had ex lap/jose manuel/bso. pt pod 1 pt was was voiding, by pod 2 pt had good pain control. by pod 3 pt was passing gas and stable for d /c home. Pt Condition on Discharge: Stable Discharge Disposition: Discharge Home Discharge Instructions Diet Instructions: Diabetic Diet Activities You Can Perform: Shower Only-No Bath Activities to Avoid: Lifting/Bending, Weight Bearing, Prolonged Standing, Strenuous Activity, Driving, Sexual Activity Additional Activity Instruc.: no lifting over 15 lbs for 6 wks, Willard De La O MD May 08, 2016 12:42
[2016-05-08 12:47] VITALS: BP 155/81; PULSE 57; RESP 16; TEMP 97.6; O2SAT 100
[2016-05-08] MEDS: DOCUSATE SODIUM 100 MG CAP PO PRN (13:24)
== END 2016-05-08 15:10 | disposition home or self-care (01) | DRG 743 ==
LOC: HSDI 05-05 07:19 → EDSTATUS 05-05 09:30 → HOCA 05-05 15:10
PROVIDERS: ADMIT Obstetrics & Gynecology; ATTEND Obstetrics & Gynecology
PROC: 0UTC0ZZ Resection of Cervix, Open Approach (ICD-10-PCS; 2016-05-05)
PROC: 0UT20ZZ Resection of Bilateral Ovaries, Open Approach (ICD-10-PCS; 2016-05-05)
PROC: 0UT70ZZ Resection of Bilateral Fallopian Tubes, Open Approach (ICD-10-PCS; 2016-05-05)
PROC: 0UT90ZZ Resection of Uterus, Open Approach (ICD-10-PCS; principal; 2016-05-05 09:36)
DX: D27.0 Benign neoplasm of right ovary (principal); E11.9 Type 2 diabetes mellitus without complications; E78.00 Pure hypercholesterolemia, unspecified; G43.909 Migraine, unspecified, not intractable, without status migrainosus; K59.00 Constipation, unspecified; J45.909 Unspecified asthma, uncomplicated; F17.210 Nicotine dependence, cigarettes, uncomplicated
CPT/HCPCS: 80053; 82565; 84132; 85025; 86850; 86900; 86901; 88305; 88307; 88331; 93005; 94150; J0131; J0690; J1100; J1885; J2270; J2370; J2405; J2710; J2765; J3010; J7120; J8501